=== PATIENT | female | born 1955 | race Native Hawaiian/Other Pacific Islander ===

== ENCOUNTER 2017-02-08 11:50 | Inpatient (IN) | payer OTHER ==
[2017-02-08 11:57] VITALS: BMI 31.1
--- NOTE | 2017-02-08 12:30 | ED PDOC ---
HPI: General Adult Time Seen by Provider: 02/08/17 12:10 Chief Complaint (Nursing): Shortness Of Breath Chief Complaint (Provider): short of breath History Per: Patient History/Exam Limitations: no limitations Additional Complaint(s): 61yo female with chest pain, shortness of breath, fever. Chest pain is right sided, pleuritic, intermittent, associated with difficulty breathing at rests. Also reports dyspnea on exertion. Admits to an intermittent fever 101*F. Also complaining of chills, no cough, leg swelling. Patient recently traveled from [facility] on 01/28/17 Past Medical History Reviewed: Historical Data, Nursing Documentation, Vital Signs Vital Signs: Last Vital Signs Temp 99 F 02/09/17 00:57 Pulse 94 H 02/09/17 00:57 Resp 19 02/09/17 00:57 BP 139/79 02/09/17 00:57 Pulse Ox 96 02/09/17 00:57 - Medical History PMH: HTN - Surgical History Surgical History: No Surg Hx - Family History Family History: States: Unknown Family Hx - Social History Drugs: Denies - Home Medications Home Medications: Ambulatory Orders Medication Instructions Recorded Glimepiride [amaRYL] 2 mg PO DAILY 02/08/17 Levothyroxine [Synthroid] 37.5 mcg PO DAILY 02/08/17 Losartan/Hctz (Zilos H) 1 tab PO DAILY 02/08/17 amLODIPine [Norvasc] 10 mg PO DAILY 02/08/17 - Allergies Allergies/Adverse Reactions: Allergies Allergy/AdvReac Type Severity Reaction Status Date / Time No Known Allergies Allergy Verified 02/08/17 12:15 Review of Systems ROS Statement: Except As Marked, All Systems Reviewed And Found Negative Constitutional: Positive for: Fever, Chills Cardiovascular: Positive for: Chest Pain Respiratory: Positive for: Shortness of Breath. Negative for: Cough Physical Exam - Reviewed Nursing Documentation Reviewed: Yes Vital Signs Reviewed: Yes - Physical Exam Appears: Positive for: Well, Non-toxic Head Exam: Positive for: ATRAUMATIC, NORMAL INSPECTION, NORMOCEPHALIC Skin: Positive for: Warm, Dry Eye Exam: Positive for: EOMI, PERRL Cardiovascular/Chest: Positive for: Tachycardia. Negative for: Irregularly Irregular Respiratory: Positive for: Respiratory Distress (mild), Other (mild tachypnea). Negative for: Rales, Rhonchi Gastrointestinal/Abdominal: Positive for: Soft. Negative for: Tenderness Extremity: Positive for: Normal ROM - Laboratory Results Result Diagrams: 02/08/17 12:30 02/08/17 12:30 - ECG ECG: Positive for: Interpreted By Me, Viewed By Me ECG Rhythm: Positive for: Normal QRS, Sinus Tachycardia. Negative for: ST/T Changes Rate: 105 O2 Sat by Pulse Oximetry: 100 (RA) Pulse Ox Interpretation: Normal - Radiology X-Ray: Interpreted by Me, Viewed By Me X-Ray Interpretation: Infiltrates (right upper lobe) Medical Decision Making Medical Decision Makin impression chest pain, dyspea, fever differential includes pneumonia, pulmonary embolism, rule out sepsis. less likely pericarditis, myocarditis. Plan: CTA Chest VBG Labs Zithromax IV Fluids Rocephin Blood culture reassess 1608 Impression Pneumonia, CAP. Differential now includes rule out TB. Discussed with Dr. Barrera hospitalist to admit with isolation precautions. Secondary Dx hyperglycemia. 1608 CTA Chest Impression Limited pulmonary angiogram due to poor opacification of the pulmonary arteries. No evidence of acute central pulmonary embolus. There is a elliptical shaped on area of what probably represents loculated pleural fluid in the right medical lung base. In addition, there is a area of altelectasis and/or consolidation in the right posterior upper lung zone/right lung apex with an elliptical shaped area of low attenuation on medially within this area of consolidation that could represent loculated fluid however the possibility of a nectoric mass not excluded. Disposition - Clinical Impression Clinical Impression: Pneumonia, Hyperglycemia - Patient ED Disposition Is Patient to be Admitted: Yes Discussed With DrAutumn: Burton Barrera Doctor Will See Patient In The: ED Counseled Patient/Family Regarding: Studies Performed, Diagnosis - Disposition Disposition Time: 16:00 Condition: FAIR - Pt Status Changed To: Hospital Disposition Of: Inpatient - Admit Certification Admit to Inpatient:: After my assessment, the patient will require hospitalization for at least two midnights. This is because of the severity of symptoms shown, intensity of services needed, and/or the medical risk in this patient being treated as an outpatient. - POA Present On Arrival: Poor Glycemic Control Additional Comments - Additional Comments Additional Comments: Scribe Attestation: Documented by Raza Givens acting as a scribe for Cesar Paige MD. Provider Scribe Attestation: All medical record entries made by the Scribe were at my direction and personally dictated by me. I have reviewed the chart and agree that the record accurately reflects my personal performance of the history, physical exam, medical decision making, and the department course for this patient. I have also personally directed, reviewed, and agree with the discharge instructions and disposition.
[2017-02-08 12:53] LABS: BASO # 0.1 K/uL (0.0-0.2); BASO % 0.5 % (0.0-2.0); EOS # 0.7 K/uL (0.0-0.7); EOS % 3.4 % (0.0-4.0); HEMATOCRIT 29.7 % (34.0-47.0); LYMPH # 1.6 K/uL (1.0-4.3); LYMPH % 7.8 % (20.0-40.0); MEAN CELL VOLUME 74.1 fl (81.0-99.0); MEAN CORPUSCULAR HEMOGLOBIN 23.3 pg (27.0-31.0); MEAN CORPUSCULAR HGB CONC 31.4 g/dL (33.0-37.0); MEAN PLATELET VOLUME 8.4 fl (7.2-11.7); MONO # 1.6 K/uL (0.0-0.8); MONO % 7.8 % (0.0-10.0); NEUT # 16.1 K/uL (1.8-7.0); NEUT % 80.5 % (50.0-75.0); PLATELET COUNT 359 K/uL (130-400); RED CELL DISTRIBUTION WIDTH 16.2 % (11.5-14.5)
[2017-02-08 12:55] LABS: VENOUS BLOOD GAS BASE EXCESS -3.1 mmol/L (0.0-2.0); VENOUS BLOOD GAS PCO2 35 mmHg (40-60); VENOUS BLOOD PH 7.39 (7.32-7.43)
[2017-02-08] MEDS ORDERED: Sodium Chloride 0.9% 1,000 ML IV STA (12:55)
[2017-02-08 12:57] LABS: BILIRUBIN,TOTAL 0.5 mg/dl (0.2-1.3); CALCIUM 9.1 mg/dL (8.4-10.2); POTASSIUM 5.1 MMOL/L (3.6-5.0); TOTAL PROTEIN 7.1 G/DL (6.3-8.2)
[2017-02-08 13:01] LABS: PARTIAL THROMBOPLASTIN TIME 29.1 SECONDS (23.3-32.5)
--- NOTE | 2017-02-08 13:19 | RAD ---
HISTORY: chest pain COMPARISON: No prior TECHNIQUE: Chest PA and lateral FINDINGS: LUNGS: Vague translucent opacity seen in the right upper lobe which appears to be of well-demarcated along its inferior border apparently by the fissure. Findings could represent atelectasis and or infiltrate. Mild left basilar linear/curvilinear atelectasis and or scarring. Suspect minor right basilar atelectasis PLEURA: No significant pleural effusion identified. No pneumothorax apparent. CARDIOVASCULAR: Normal. OSSEOUS STRUCTURES: No significant abnormalities. VISUALIZED UPPER ABDOMEN: Normal. OTHER FINDINGS: None. IMPRESSION: Vague translucent opacity seen in the right upper lobe which appears to be of well-demarcated along its inferior border apparently by the fissure. Findings could represent atelectasis and or infiltrate. Mild left basilar linear/curvilinear atelectasis and or scarring. Suspect minor right basilar atelectasis
[2017-02-08] MEDS ORDERED: cefTRIAXone (Rocephin) 1 gm Inj ONE (13:57)
[2017-02-08 13:58] LABS: EOSINOPHIL 3 % (0-7); NEUTROPHIL 84 % (42-75); TOTAL CELLS COUNTED 100
[2017-02-08 14:00] LABS: PLATELET CLUMPS PRESENT
[2017-02-08] MEDS ORDERED: Sodium Chloride 0.9% 50 ML IV ONE (14:08)
[2017-02-08] MEDS ORDERED: Iodixanol 320 MG/ML 100 ML BOTTLE IV ONE (14:08)
--- NOTE | 2017-02-08 15:44 | CT ---
PROCEDURE: CTA chest dated 02/08/2017 HISTORY: chest pain COMPARISON: None available. TECHNIQUE: Helical/transaxial computed tomography images were obtained of the chest in the pulmonary arterial phase of enhancement. Coronal and sagittal reformatted images were created and reviewed. Intravenous contrast dose: Approximately 83 cc Visipaque 320 contrast material. Radiation dose: Total exam DLP = mGy-cm. This CT exam was performed using one or more of the following dose reduction techniques: Automated exposure control, adjustment of the mA and/or kV according to patient size, and/or use of iterative reconstruction technique. FINDINGS: Findings: PULMONARY ARTERIES: Note that evaluation of the pulmonary arteries is somewhat limited due to suboptimal opacification. The visualized pulmonary trunk, right and left main, lobar and segmental branches of the pulmonary arteries are well opacified with no obvious central filling defects. Pulmonary trunk measures approximately 2.56 cm. AORTA: Ascending thoracic aorta measures approximately 3.0 cm and descending thoracic aorta measures approximately 2.4 cm. LUNGS: There is opacification in the right upper lung field that appears to represent a elliptical shaped area of subsegmental/submental atelectasis however an approximately 2.95 ap x 2.2 t x 3.0 cc cm more discrete somewhat elliptical shaped area of low attenuation within the medial aspect of this suspected atelectasis could represent loculated fluid. Possibility of a necrotic mass cannot be excluded. In addition, there is what appears represent a loculated pleural effusion in the posteromedial aspect right lung base at as well. Findings could represent sequela of old infection . . Mild left lingular atelectasis/scarring. Minimal atelectasis/scarring right middle lobe region. PLEURAL SPACES: As above. No pneuomothorax. HEART: Heart size within range of normal. Mild LVH. No significant pericardial effusion LYMPH NODES: Small 14 mm right hilar lymph node. BONES, CHEST WALL: Mild multilevel degenerative spondylosis of the thoracic spine. Of. There is a chronic appearing anterior wedge deformity of the T12 and to a lesser degree T11 and less so T10 segments. OTHER FINDINGS: Unremarkable. IMPRESSION: Limited pulmonary angiogram due to poor opacification of the pulmonary arteries. No evidence of acute central pulmonary embolus. There is a elliptical shaped on area of what probably represents loculated pleural fluid in the right medial lung base. In addition, there is a area of atelectasis and/or consolidation in the right posterior upper lung zone/right lung apex with an elliptical shaped area of low attenuation on medially within this area of consolidation that could represent loculated fluid however the possibility of a necrotic mass not excluded.
[2017-02-08] MEDS ORDERED: Sodium Chloride 3% for Inhalation 4 ML VIAL.NEB IH PRN (15:59)
[2017-02-08] MEDS ORDERED: Insulin Regular 100 units/ml IV STA (16:10)
--- NOTE | 2017-02-08 18:56 | CP.PCM.HP ---
History of Present Illness - History of Present Illness History of Present Illness: 61 yo female with history of HTN and DM recently arrived from [place] 10 days ago brought in because of SOB, right sided pleuritic chest pain and fever since 5 days ago. Present on Admission - Present on Admission Any Indicators Present on Admission: No History of DVT/PE: No History of Uncontrolled Diabetes: No Urinary Catheter: No Decubitus Ulcer Present: No Review of Systems - Review of Systems All systems: reviewed and no additional remarkable complaints except (aside from those mentioned above, 12 point system review were negative by me) Past Patient History - Past Medical History & Family History Past Medical History?: Yes - Past Social History Smoking Status: Never Smoked Chewing Tobacco Use: No Cigar Use: No Alcohol: None Drugs: Denies - CARDIAC Hx Cardiac Disorders: Yes Hx Hypertension: Yes - PULMONARY Hx Respiratory Disorders: No - NEUROLOGICAL Hx Neurological Disorder: No - HEENT Hx HEENT Problems: No - RENAL Hx Chronic Kidney Disease: No - ENDOCRINE/METABOLIC Hx Endocrine Disorders: Yes Hx Diabetes Mellitus Type 2: Yes - HEMATOLOGICAL/ONCOLOGICAL Hx Blood Disorders: No - INTEGUMENTARY Hx Dermatological Problems: No - MUSCULOSKELETAL/RHEUMATOLOGICAL Hx Musculoskeletal Disorders: No Hx Falls: No - GASTROINTESTINAL Hx Gastrointestinal Disorders: No - GENITOURINARY/GYNECOLOGICAL Hx Genitourinary Disorders: No - PSYCHIATRIC Hx Psychophysiologic Disorder: No Hx Substance Use: No - SURGICAL HISTORY Hx Surgeries: Yes Hx Section: Yes (1) - ANESTHESIA Hx Anesthesia: Yes Hx Anesthesia Reactions: No Meds Allergies/Adverse Reactions: Allergies Allergy/AdvReac Type Severity Reaction Status Date / Time No Known Allergies Allergy Verified 02/08/17 12:15 Physical Exam - Constitutional Appears: No Acute Distress - Head Exam Head Exam: ATRAUMATIC - Eye Exam Eye Exam: absent: Scleral icterus - ENT Exam ENT Exam: Mucous Membranes Moist - Neck Exam Neck exam: Negative for: Meningismus - Respiratory Exam Respiratory Exam: Decreased Breath Sounds. absent: Respiratory Distress - Cardiovascular Exam Cardiovascular Exam: Tachycardia, +S1, +S2 - GI/Abdominal Exam GI & Abdominal Exam: Soft. absent: Tenderness - Rectal Exam Rectal Exam: Deferred - Extremities Exam Extremities exam: Negative for: pedal edema - Neurological Exam Neurological exam: Alert, Oriented x3 - Psychiatric Exam Psychiatric exam: Normal Affect - Skin Skin Exam: Dry, Intact Results - Vital Signs Recent Vital Signs: Last Vital Signs Temp 98.5 F 02/08/17 18:00 Pulse 101 H 02/08/17 18:00 Resp 20 02/08/17 18:33 BP 151/77 H 02/08/17 18:00 Pulse Ox 99 02/08/17 18:33 - Labs Result Diagrams: 02/10/17 06:15 02/11/17 06:05 Assessment & Plan (1) Sepsis Status: Acute Comment: admit to med/surg. sepsis secondary to pneumonia (2) Pneumonia Status: Acute Comment: rul and rml pneumonia r/o PTB. PPD. sputum for AFB. Qunatiferon TB. continue isolation. started on Rocephin and Zithromax (3) HTN (hypertension) Status: Chronic Comment: BP controlled. on anti-hypertensive in [place] probably Amlodipine and Losartan (4) DM2 (diabetes mellitus, type 2) Status: Chronic Comment: BS uncontrolled. accuchek ACHS with low Lispro coverage. diabetic diet. HgA1C, BMP in am (5) DVT prophylaxis Status: Acute Comment: Lovenox 40mg SC daily
[2017-02-08] MEDS ORDERED: Tuberculin 5 Units/0.1 ml Inj ID ONE (20:00)
[2017-02-08] MEDS: Insulin Lispro (humaLOG) 100 Units/ml Inj SC SCH (21:34)
[2017-02-09] MEDS: Enoxaparin 40 mg Syringe SC SCH (08:24)
[2017-02-09] MEDS: Insulin Lispro (humaLOG) 100 Units/ml Inj SC SCH ×4 (08:24→21:41)
[2017-02-09] MEDS: Levothyroxine 75 MCG TAB PO SCH (08:25)
[2017-02-09] MEDS ORDERED: GlipiZIDE 5 mg SR Tab PO SCH (08:30)
--- NOTE | 2017-02-09 09:30 | CARD ---
APPROVED REPORT EKG Measurement Heart [id number] <Conclusion> Normal sinus rhythm Cannot rule out Anterior infarct, age undetermined-not diagnostic Abnormal ECG
--- NOTE | 2017-02-09 10:58 | CARD ---
APPROVED REPORT EKG Measurement Heart [id number] <Conclusion> Sinus tachycardia Cannot rule out Anterior infarct, age undetermined-not diagnostic Abnormal ECG
[2017-02-09 11:02] LABS: BASO % 0.3 % (0.0-2.0); EOS # 0.6 K/uL (0.0-0.7); EOS % 3.7 % (0.0-4.0); HEMATOCRIT 29.5 % (34.0-47.0); LYMPH # 1.2 K/uL (1.0-4.3); LYMPH % 7.7 % (20.0-40.0); MEAN CELL VOLUME 73.9 fl (81.0-99.0); MEAN CORPUSCULAR HEMOGLOBIN 23.1 pg (27.0-31.0); MEAN CORPUSCULAR HGB CONC 31.2 g/dL (33.0-37.0); MEAN PLATELET VOLUME 8.1 fl (7.2-11.7); MONO # 1.2 K/uL (0.0-0.8); MONO % 7.7 % (0.0-10.0); NEUT # 12.6 K/uL (1.8-7.0); NEUT % 80.6 % (50.0-75.0); RED CELL DISTRIBUTION WIDTH 15.9 % (11.5-14.5); WHITE BLOOD COUNT 15.6 K/uL (4.8-10.8)
--- NOTE | 2017-02-09 11:02 | CP.PCM.PN ---
Subjective - Date & Time of Evaluation Date of Evaluation: 02/09/17 Time of Evaluation: 11:00 - Subjective Subjective: Patient seen and evaluated bedside. Feeling a little better. Still feeling SOB at rest and with ambulation. Right chest pain a little improved but still present especially with deep breaths.No cough or sputum production Hemodynamically stable, afebrile Accucheks uncontrolled BP 149/79 HR 80 RR 20 WBC 15 K Hgb 9.2 Cr 1.3 Objective - Vital Signs/Intake and Output Vital Signs (last 24 hours): Temp Pulse Resp BP Pulse Ox 98.2 F 80 20 149/79 96 02/09/17 08:18 02/09/17 08:18 02/09/17 08:18 02/09/17 08:18 02/09/17 08:18 - Medications Medications: Current Medications Acetaminophen (Tylenol 325mg Tab) 650 mg PO Q4 PRN PRN Reason: Pain, moderate (4-7) Last Admin: 02/08/17 20:09 Dose: 650 mg Amlodipine Besylate (Norvasc) 5 mg PO DAILY [facility] Last Admin: 02/09/17 08:25 Dose: 5 mg Enoxaparin Sodium (Lovenox) 40 mg SC DAILY [facility] PRN Reason: Protocol Last Admin: 02/09/17 08:24 Dose: 40 mg Glipizide (Glucotrol Xl) 5 mg PO BRK [facility] Last Admin: 02/09/17 09:19 Dose: 5 mg Ceftriaxone Sodium 1 gm/ (Sodium Chloride) 100 mls @ 100 mls/hr IVPB DAILY [facility] Azithromycin 500 mg/ Sodium (Chloride) 250 mls @ 250 mls/hr IVPB DAILY [facility] Sodium Chloride (Sodium Chloride 0.9%) 1,000 mls @ 100 mls/hr IV .Q10H [facility] Stop: 02/10/17 10:55 Insulin Human Lispro (Humalog) 0 units SC ACHS [facility] PRN Reason: Protocol Last Admin: 02/09/17 08:24 Dose: 5 units Levothyroxine Sodium (Synthroid) 37.5 mcg PO DAILY [facility] Last Admin: 02/09/17 08:25 Dose: 37.5 mcg - Labs Labs: PT 10.5 SECONDS (9.6-11.2) 02/08/17 12:30 INR 1.01 (0.92-1.08) 02/08/17 12:30 APTT 29.1 SECONDS (23.3-32.5) 02/08/17 12:30 - Constitutional Appears: Well, Non-toxic, No Acute Distress - Head Exam Head Exam: ATRAUMATIC, NORMAL INSPECTION, NORMOCEPHALIC - Eye Exam Eye Exam: EOMI, Normal appearance, PERRL Pupil Exam: NORMAL ACCOMODATION - ENT Exam ENT Exam: Mucous Membranes Moist, Normal Exam - Neck Exam Neck Exam: Full ROM, Normal Inspection - Respiratory Exam Respiratory Exam: Clear to Ausculation Bilateral, NORMAL BREATHING PATTERN. absent: Rhonchi, Wheezes, Respiratory Distress - Cardiovascular Exam Cardiovascular Exam: REGULAR RHYTHM, RRR, +S1, +S2. absent: JVD - GI/Abdominal Exam GI & Abdominal Exam: Soft, Normal Bowel Sounds. absent: Distended, Tenderness, Rebound - Rectal Exam Rectal Exam: Deferred - Extremities Exam Extremities Exam: Full ROM, Normal Capillary Refill, Normal Inspection. absent : Calf Tenderness, Pedal Edema - Back Exam Back Exam: NORMAL INSPECTION - Neurological Exam Neurological Exam: Alert, Awake, CN II-XII Intact, Oriented x3 - Psychiatric Exam Psychiatric exam: Normal Affect, Normal Mood - Skin Skin Exam: Dry, Normal Color, Warm Assessment and Plan - Assessment and Plan (Free Text) Assessment: 61 yo female with PMH hypothyroidism, DM type II, HTN , anemia of chronic disease presented with 3 day history of right sided chest pain,intermittent, pleuritic in nature, worse with deep[ breathing , shortness of breath, fever. Patient denies any cough, sputum production, weight loss, night sweats.She recently traveled from [facility] to 01/28 .Patient reported fever at home 101.5 F. Patient was found to have loculated pleural fluid in the right medial lung base and there is a area of atelectasis and/or consolidation in the right posterior upper lung zone/right lung apex with an elliptical shaped area of low attenuation on medially within this area of consolidation that could represent loculated fluid however the possibility of a necrotic mass not excluded. Patient found to be tachycardic with WBC 20 K 1.Sepsis improving Most likely secondary to Pneumonia Responded to IVF Started Rocephin and Zithromax for Pneumonia Follow up blood Cx 2. Pneumonia with loculated pleural effusion and suspected RUL nectrotic mass Placed on respiratory isolation to rule out TB Pulmonary and ID consulted Placed PPD to right forearm. Will reda in 48 and 72 hours Follow up quantiferon Respiratory therapist for sputum induction for AFB collection Continue Rocephin and Zithromax O2 via [place] Follow up blood cx 3. Acute kidney injury Most likely prerenal Continue IVF 4. Anemia Patient has history of chronic anemia with baseline Hgb 10.5 Send anemia work up 5. Uncontrolled DM accu 360 Check Hgb A1c Start Glipizide 10 mg PO daily, diabetic diet Accuchecks with insulin coverage Family will bring all her home meds 6. Hypothyroidism Check TSH On Synthroid 7. Hypertension labile On Norvasc 5 mg QD 8.Hyperkalemia resolved with IVF 9.DVT prophylaxis on Lovenox
[2017-02-09] MEDS: Sodium Chloride 0.9% 1,000 ML IV SCH ×2 (11:11→21:41)
[2017-02-09 11:12] LABS: BILIRUBIN,TOTAL 0.3 mg/dl (0.2-1.3); CALCIUM 9.1 mg/dL (8.4-10.2); POTASSIUM 4.7 MMOL/L (3.6-5.0); TOTAL PROTEIN 6.7 G/DL (6.3-8.2)
[2017-02-09] MEDS ORDERED: GlipiZIDE 5 mg SR Tab PO STA (11:26)
[2017-02-09 12:36] LABS: IRON 19 ug/dL (37-170)
[2017-02-09 13:02] LABS: THYROID STIMULATING HORMONE 2.93 mIU/ML (0.46-4.68)
[2017-02-09] MEDS: Azithromycin 500 MG in Sodium Chloride 0.9% 250 ML IVPB SCH (13:39)
--- NOTE | 2017-02-09 19:09 | CP.PCM.PN ---
Subjective - Date & Time of Evaluation Date of Evaluation: 02/09/17 Time of Evaluation: 19:08 - Subjective Subjective: ID NOTE AT PRESENT CHART REVIEWED AGREE C ANTIBIOTIC RX AWAIT AFB SMEARS AND CULTURES ALONG C QUANTIFERON GOLD Objective - Vital Signs/Intake and Output Vital Signs (last 24 hours): Temp Pulse Resp BP Pulse Ox 98.7 F 107 H 18 153/77 H 95 02/09/17 17:03 02/09/17 17:03 02/09/17 17:03 02/09/17 17:03 02/09/17 17:03 - Medications Medications: Current Medications Acetaminophen (Tylenol 325mg Tab) 650 mg PO Q4 PRN PRN Reason: Pain, moderate (4-7) Last Admin: 02/09/17 15:30 Dose: 650 mg Amlodipine Besylate (Norvasc) 5 mg PO DAILY [facility] Last Admin: 02/09/17 08:25 Dose: 5 mg Enoxaparin Sodium (Lovenox) 40 mg SC DAILY [facility] PRN Reason: Protocol Last Admin: 02/09/17 08:24 Dose: 40 mg Glipizide (Glucotrol Xl) 10 mg PO BRK [facility] Ceftriaxone Sodium 1 gm/ (Sodium Chloride) 100 mls @ 100 mls/hr IVPB DAILY [facility] Last Admin: 02/09/17 13:39 Dose: 100 mls/hr Azithromycin 500 mg/ Sodium (Chloride) 250 mls @ 250 mls/hr IVPB DAILY [facility] Last Admin: 02/09/17 13:39 Dose: 250 mls/hr Sodium Chloride (Sodium Chloride 0.9%) 1,000 mls @ 100 mls/hr IV .Q10H [facility] Stop: 02/10/17 10:55 Last Admin: 02/09/17 11:11 Dose: 100 mls/hr Insulin Human Lispro (Humalog) 0 units SC ACHS [facility] PRN Reason: Protocol Last Admin: 02/09/17 16:39 Dose: 4 units Levothyroxine Sodium (Synthroid) 37.5 mcg PO DAILY [facility] Last Admin: 02/09/17 08:25 Dose: 37.5 mcg - Labs Labs: 02/09/17 10:35 02/09/17 10:35 PT 10.5 SECONDS (9.6-11.2) 02/08/17 12:30 INR 1.01 (0.92-1.08) 02/08/17 12:30 APTT 29.1 SECONDS (23.3-32.5) 02/08/17 12:30
--- NOTE | 2017-02-09 21:31 | CP.PCM.CON ---
History of Present Illness - History of Present Illness History of Present Illness: Patient seen, chart reviewed; full consult to follow. Cont present treatment for now. Past Patient History - Past Medical History & Family History Past Medical History?: Yes - Past Social History Drugs: Denies - CARDIAC Hx Hypertension: Yes - PULMONARY Hx Respiratory Disorders: No - NEUROLOGICAL Hx Neurological Disorder: No - HEENT Hx HEENT Problems: No - RENAL Hx Chronic Kidney Disease: No - ENDOCRINE/METABOLIC Hx Endocrine Disorders: Yes Hx Diabetes Mellitus Type 2: Yes - HEMATOLOGICAL/ONCOLOGICAL Hx Blood Disorders: No - INTEGUMENTARY Hx Dermatological Problems: No - MUSCULOSKELETAL/RHEUMATOLOGICAL Hx Musculoskeletal Disorders: No Hx Falls: No - GASTROINTESTINAL Hx Gastrointestinal Disorders: No - GENITOURINARY/GYNECOLOGICAL Hx Genitourinary Disorders: No - PSYCHIATRIC Hx Psychophysiologic Disorder: No Hx Substance Use: No - SURGICAL HISTORY Hx Surgeries: Yes Hx Section: Yes (1) - ANESTHESIA Hx Anesthesia: Yes Hx Anesthesia Reactions: No Meds Allergies/Adverse Reactions: Allergies Allergy/AdvReac Type Severity Reaction Status Date / Time No Known Allergies Allergy Verified 02/08/17 12:15 - Medications Medications: Current Medications Acetaminophen (Tylenol 325mg Tab) 650 mg PO Q4 PRN PRN Reason: Pain, moderate (4-7) Last Admin: 02/09/17 15:30 Dose: 650 mg Amlodipine Besylate (Norvasc) 5 mg PO DAILY [facility] Last Admin: 02/09/17 08:25 Dose: 5 mg Enoxaparin Sodium (Lovenox) 40 mg SC DAILY [facility] PRN Reason: Protocol Last Admin: 02/09/17 08:24 Dose: 40 mg Glipizide (Glucotrol Xl) 10 mg PO BRK [facility] Ceftriaxone Sodium 1 gm/ (Sodium Chloride) 100 mls @ 100 mls/hr IVPB DAILY [facility] Last Admin: 02/09/17 13:39 Dose: 100 mls/hr Azithromycin 500 mg/ Sodium (Chloride) 250 mls @ 250 mls/hr IVPB DAILY [facility] Last Admin: 02/09/17 13:39 Dose: 250 mls/hr Sodium Chloride (Sodium Chloride 0.9%) 1,000 mls @ 100 mls/hr IV .Q10H [facility] Stop: 02/10/17 10:55 Last Admin: 02/09/17 11:11 Dose: 100 mls/hr Insulin Human Lispro (Humalog) 0 units SC ACHS [facility] PRN Reason: Protocol Last Admin: 02/09/17 16:39 Dose: 4 units Levothyroxine Sodium (Synthroid) 37.5 mcg PO DAILY [facility] Last Admin: 02/09/17 08:25 Dose: 37.5 mcg Results - Vital Signs Recent Vital Signs: Last Vital Signs Temp 98.7 F 02/09/17 17:03 Pulse 107 H 02/09/17 17:03 Resp 18 02/09/17 17:03 BP 153/77 H 02/09/17 17:03 Pulse Ox 95 02/09/17 17:03 - Labs Result Diagrams: 02/09/17 10:35 02/09/17 10:35 Labs: Laboratory Results - last 24 hr 02/08/17 02/09/17 02/09/17 21:28 05:52 10:35 WBC 15.6 H RBC 3.99 Hgb 9.2 L Hct 29.5 L MCV 73.9 L MCH 23.1 L MCHC 31.2 L RDW 15.9 H Plt Count 359 MPV 8.1 Neut % (Auto) 80.6 H Lymph % (Auto) 7.7 L [place] % (Auto) 7.7 Eos % (Auto) 3.7 Baso % (Auto) 0.3 Neut # 12.6 H Lymph # 1.2 [place] # 1.2 H Eos # 0.6 Baso # 0.0 Retic Count Sodium Potassium Chloride Carbon Dioxide Anion Gap BUN Creatinine Est GFR ( Amer) Est GFR (Non-Af Amer) POC Glucose (mg/dL) 381 H 364 H Random Glucose Calcium Iron TIBC % Saturation Ferritin Total Bilirubin AST ALT Alkaline Phosphatase Total Protein Albumin Globulin Albumin/Globulin Ratio Vitamin B12 TSH 3rd Generation 02/09/17 02/09/17 02/09/17 10:35 11:00 11:00 WBC RBC Hgb Hct MCV MCH MCHC RDW Plt Count MPV Neut % (Auto) Lymph % (Auto) [place] % (Auto) Eos % (Auto) Baso % (Auto) Neut # Lymph # [place] # Eos # Baso # Retic Count 1.3 Sodium 138 Potassium 4.7 Chloride 103 Carbon Dioxide 23 Anion Gap 17 BUN 17 Creatinine 1.3 H Est GFR ( Amer) 51 Est GFR (Non-Af Amer) 42 POC Glucose (mg/dL) Random Glucose 389 H Calcium 9.1 Iron TIBC % Saturation Ferritin 141.0 Total Bilirubin 0.3 AST 16 ALT 41 Alkaline Phosphatase 123 Total Protein 6.7 Albumin 3.4 L Globulin 3.4 Albumin/Globulin Ratio 1.0 Vitamin B12 > 1000 H TSH 3rd Generation 2.93 02/09/17 02/09/17 02/09/17 11:06 12:00 15:49 WBC RBC Hgb Hct MCV MCH MCHC RDW Plt Count MPV Neut % (Auto) Lymph % (Auto) [place] % (Auto) Eos % (Auto) Baso % (Auto) Neut # Lymph # [place] # Eos # Baso # Retic Count Sodium Potassium Chloride Carbon Dioxide Anion Gap BUN Creatinine Est GFR ( Amer) Est GFR (Non-Af Amer) POC Glucose (mg/dL) 360 H 345 H Random Glucose Calcium Iron 19 L TIBC 240 L % Saturation 8 L Ferritin Total Bilirubin AST ALT Alkaline Phosphatase Total Protein Albumin Globulin Albumin/Globulin Ratio Vitamin B12 TSH 3rd Generation
[2017-02-09 21:50] LABS: FOLATE > 20.0 ng/mL
[2017-02-10] MEDS: Sodium Chloride 0.9% 1,000 ML IV SCH ×2 (02:12→09:00)
[2017-02-10 07:00] LABS: MEAN CELL VOLUME 74.3 fl (81.0-99.0); MEAN CORPUSCULAR HEMOGLOBIN 22.5 pg (27.0-31.0); MEAN CORPUSCULAR HGB CONC 30.3 g/dL (33.0-37.0); RED CELL DISTRIBUTION WIDTH 15.9 % (11.5-14.5); WHITE BLOOD COUNT 17.1 K/uL (4.8-10.8)
[2017-02-10 07:01] LABS: CALCIUM 9.4 mg/dL (8.4-10.2); POTASSIUM 4.5 MMOL/L (3.6-5.0)
[2017-02-10] MEDS: Insulin Lispro (humaLOG) 100 Units/ml Inj SC SCH ×4 (08:45→22:02)
[2017-02-10] MEDS: Enoxaparin 40 mg Syringe SC SCH (08:47)
[2017-02-10] MEDS: Levothyroxine 75 MCG TAB PO SCH (08:48)
[2017-02-10] MEDS: GlipiZIDE 10 mg SR Tab PO SCH (08:48)
[2017-02-10] MEDS: Azithromycin 500 MG in Sodium Chloride 0.9% 250 ML IVPB SCH (08:50)
--- NOTE | 2017-02-10 11:01 | CP.PCM.PN ---
Subjective - Date & Time of Evaluation Date of Evaluation: 02/10/17 Time of Evaluation: 11:00 - Subjective Subjective: Patient seen and examined bedside. Feeling better. Still with some dyspnea with ambulation overnight , some chills and right sided chest pain with deep breathing Tmax 100.5 last 24 hours BP elevated 177/96 HR 96 WBC 17 K Hgb 9.4 Objective - Vital Signs/Intake and Output Vital Signs (last 24 hours): Temp Pulse Resp BP Pulse Ox 98.4 F 96 H 18 177/96 H 98 02/10/17 07:41 02/10/17 08:47 02/10/17 07:41 02/10/17 08:47 02/10/17 07:41 - Medications Medications: Current Medications Acetaminophen (Tylenol 325mg Tab) 650 mg PO Q4 PRN PRN Reason: Pain, moderate (4-7) Last Admin: 02/09/17 23:11 Dose: 650 mg Amlodipine Besylate (Norvasc) 5 mg PO DAILY [facility] Last Admin: 02/10/17 08:47 Dose: 5 mg Enoxaparin Sodium (Lovenox) 40 mg SC DAILY [facility] PRN Reason: Protocol Last Admin: 02/10/17 08:47 Dose: 40 mg Ferrous Sulfate (Feosol) 325 mg PO BID [facility] Glipizide (Glucotrol Xl) 10 mg PO BRK [facility] Last Admin: 02/10/17 08:48 Dose: 10 mg Ceftriaxone Sodium 1 gm/ (Sodium Chloride) 100 mls @ 100 mls/hr IVPB DAILY [facility] Last Admin: 02/10/17 08:51 Dose: 100 mls/hr Azithromycin 500 mg/ Sodium (Chloride) 250 mls @ 250 mls/hr IVPB DAILY [facility] Last Admin: 02/10/17 08:50 Dose: 250 mls/hr Sodium Chloride (Sodium Chloride 0.9%) 1,000 mls @ 100 mls/hr IV .Q10H [facility] Stop: 02/10/17 10:55 Last Admin: 02/10/17 09:00 Dose: Not Given Iron Sucrose 100 mg/ Sodium (Chloride) 105 mls @ 105 mls/hr IVPB DAILY [facility] Insulin Human Lispro (Humalog) 0 units SC ACHS [facility] PRN Reason: Protocol Last Admin: 02/10/17 08:45 Dose: 1 units Levothyroxine Sodium (Synthroid) 37.5 mcg PO DAILY@0630 [facility] Metoprolol Succinate (Toprol Xl) 25 mg PO DAILY [facility] - Labs Labs: 02/10/17 06:15 02/10/17 06:15 PT 10.5 SECONDS (9.6-11.2) 02/08/17 12:30 INR 1.01 (0.92-1.08) 02/08/17 12:30 APTT 29.1 SECONDS (23.3-32.5) 02/08/17 12:30 - Constitutional Appears: Non-toxic, No Acute Distress - Head Exam Head Exam: ATRAUMATIC, NORMAL INSPECTION, NORMOCEPHALIC - Eye Exam Eye Exam: EOMI, Normal appearance, PERRL Pupil Exam: NORMAL ACCOMODATION - ENT Exam ENT Exam: Mucous Membranes Moist, Normal Exam - Neck Exam Neck Exam: Full ROM, Normal Inspection - Respiratory Exam Respiratory Exam: Decreased Breath Sounds (right lower base), Clear to Ausculation Bilateral, Rales, NORMAL BREATHING PATTERN. absent: Rhonchi, Wheezes - Cardiovascular Exam Cardiovascular Exam: REGULAR RHYTHM, RRR, +S1, +S2. absent: JVD - GI/Abdominal Exam GI & Abdominal Exam: Soft, Normal Bowel Sounds. absent: Distended, Guarding, Tenderness, Rebound - Rectal Exam Rectal Exam: Deferred - Extremities Exam Extremities Exam: Full ROM, Normal Capillary Refill, Normal Inspection. absent : Calf Tenderness, Pedal Edema - Back Exam Back Exam: NORMAL INSPECTION - Neurological Exam Neurological Exam: Alert, Awake, CN II-XII Intact, Oriented x3 - Psychiatric Exam Psychiatric exam: Normal Affect, Normal Mood - Skin Skin Exam: Dry, Intact, Normal Color, Warm Assessment and Plan - Assessment and Plan (Free Text) Assessment: 61 yo female with PMH hypothyroidism, DM type II, HTN , anemia of chronic disease presented with 3 day history of right sided chest pain,intermittent, pleuritic in nature, worse with deep breathing , shortness of breath, fever. Patient denies any cough, sputum production, weight loss, night sweats.She recently traveled from [facility] to 01/28 .Patient reported fever at home 101.5 F. Patient was found to have loculated pleural fluid in the right medial lung base and there is a area of atelectasis and/or consolidation in the right posterior upper lung zone/right lung apex with an elliptical shaped area of low attenuation on medially within this area of consolidation that could represent loculated fluid however the possibility of a necrotic mass not excluded. Patient found to be tachycardic with WBC 20 K and was admitted for sepsis and pneumonia 1.Sepsis improving Most likely secondary to Pneumonia Responded to IVF Continue Rocephin and Zithromax for Pneumonia blood Cx with no growth so far 2. Pneumonia with loculated pleural effusion and suspected RUL nectrotic mass Placed on respiratory isolation to rule out TB Pulmonary and ID consulted Placed PPD to right forearm. Will read in 48 and 72 hours Follow up quantiferon Respiratory therapist for sputum induction for AFB collection ( 2 samples obtained so far ) Continue Rocephin and Zithromax O2 via NC Pain management for pleuritic chest pain blood cx with no growth so far 3. Acute kidney injury improving , Cr 1.3 Most likely prerenal Continue IVF 4. Anemia Patient has history of chronic anemia with baseline Hgb 10.5 anemia work up shows iron deficiency Will give Venofer IV 100 mg IV and than strat on Ferrous sulfate PO 5. Uncontrolled DM Hgb A1c 8.7 Started Glipizide 10 mg PO daily, diabetic diet Accuchecks with insulin coverage Family will bring all her home meds 6. Hypothyroidism Controlled On Synthroid 7. Hypertension uncontrolled On Norvasc 5 mg QD Strt Toprol XL 25 mg po QD 8.Hyperkalemia resolved with IVF 9.DVT prophylaxis on Lovenox
[2017-02-10] MEDS: Metoprolol Succinate 25 mg XL Tab PO SCH (12:16)
--- NOTE | 2017-02-10 14:19 | CP.PCM.PN ---
Subjective - Subjective Subjective: Acute Resp Insuff Pneumonia ?Cavitary Necrotic Apical Mass Pleuritic Chest Pain S/ Feeing better. O/ VSS Head, Nego adeno Heart rrr ns1s2 Neg M Lungs some faint crackles mostly on right hemithorax Ext No c,c,e Neruo GNF a/p Cont abx at this point. Cont isolation (doubt TB given paucity of other constitutional Sx, but atypical presentation is always a consideration.) Rec HIV testing. f/u PPD and Gamma Interferon testing. Cont supp O2 for O2 sat > 90%. Cont serial AFB studies. ID input. If patient's sx resolve completely, would perform repeat CT scan in 3 weeks, and can be followed in Pulmonary Clinic. DVT Px. Will f/u. Objective - Vital Signs/Intake and Output Vital Signs (last 24 hours): Temp Pulse Resp BP Pulse Ox 98.4 F 94 H 18 176/94 H 98 02/10/17 07:41 02/10/17 12:16 02/10/17 07:41 02/10/17 12:16 02/10/17 07:41 - Medications Medications: Current Medications Acetaminophen (Tylenol 325mg Tab) 650 mg PO Q4 PRN PRN Reason: Pain, moderate (4-7) Last Admin: 02/09/17 23:11 Dose: 650 mg Amlodipine Besylate (Norvasc) 5 mg PO DAILY [facility] Last Admin: 02/10/17 08:47 Dose: 5 mg Enoxaparin Sodium (Lovenox) 40 mg SC DAILY [facility] PRN Reason: Protocol Last Admin: 02/10/17 08:47 Dose: 40 mg Ferrous Sulfate (Feosol) 325 mg PO BID [facility] Glipizide (Glucotrol Xl) 10 mg PO BRK [facility] Last Admin: 02/10/17 08:48 Dose: 10 mg Ceftriaxone Sodium 1 gm/ (Sodium Chloride) 100 mls @ 100 mls/hr IVPB DAILY [facility] Last Admin: 02/10/17 08:51 Dose: 100 mls/hr Azithromycin 500 mg/ Sodium (Chloride) 250 mls @ 250 mls/hr IVPB DAILY [facility] Last Admin: 02/10/17 08:50 Dose: 250 mls/hr Iron Sucrose 100 mg/ Sodium (Chloride) 105 mls @ 105 mls/hr IVPB DAILY [facility] Last Admin: 02/10/17 12:16 Dose: 105 mls/hr Insulin Human Lispro (Humalog) 0 units SC ACHS [facility] PRN Reason: Protocol Last Admin: 02/10/17 12:19 Dose: 4 units Levothyroxine Sodium (Synthroid) 37.5 mcg PO DAILY@0630 [facility] Metoprolol Succinate (Toprol Xl) 25 mg PO DAILY [facility] Last Admin: 02/10/17 12:16 Dose: 25 mg - Labs Labs: 02/10/17 06:15 02/10/17 06:15 PT 10.5 SECONDS (9.6-11.2) 02/08/17 12:30 INR 1.01 (0.92-1.08) 02/08/17 12:30 APTT 29.1 SECONDS (23.3-32.5) 02/08/17 12:30
[2017-02-11] MEDS: Levothyroxine 75 MCG TAB PO SCH (07:05)
[2017-02-11] MEDS: Insulin Lispro (humaLOG) 100 Units/ml Inj SC SCH ×4 (07:05→22:24)
[2017-02-11 07:13] LABS: CALCIUM 9.3 mg/dL (8.4-10.2); POTASSIUM 4.6 MMOL/L (3.6-5.0)
[2017-02-11] MEDS: GlipiZIDE 10 mg SR Tab PO SCH (09:10)
[2017-02-11] MEDS: Azithromycin 500 MG in Sodium Chloride 0.9% 250 ML IVPB SCH (11:04)
[2017-02-11] MEDS: Metoprolol Succinate 25 mg XL Tab PO SCH (11:11)
[2017-02-11] MEDS: Enoxaparin 40 mg Syringe SC SCH (11:14)
--- NOTE | 2017-02-11 13:51 | CP.PCM.PN ---
Subjective - Date & Time of Evaluation Date of Evaluation: 02/11/17 Time of Evaluation: 11:00 - Subjective Subjective: Pt seen and examined. Still with right pleuritic chest pain but lesser and more bearable. Denied SOB and coughing. Objective - Vital Signs/Intake and Output Vital Signs (last 24 hours): Temp Pulse Resp BP Pulse Ox 99.0 F 85 20 149/78 95 02/11/17 08:02 02/11/17 11:13 02/11/17 08:02 02/11/17 11:13 02/11/17 08:02 - Medications Medications: Current Medications Acetaminophen (Tylenol 325mg Tab) 650 mg PO Q4 PRN PRN Reason: Pain, moderate (4-7) Last Admin: 02/10/17 23:30 Dose: 650 mg Amlodipine Besylate (Norvasc) 5 mg PO DAILY [facility] Last Admin: 02/11/17 11:13 Dose: 5 mg Enoxaparin Sodium (Lovenox) 40 mg SC DAILY [facility] PRN Reason: Protocol Last Admin: 02/11/17 11:14 Dose: 40 mg Ferrous Sulfate (Feosol) 325 mg PO BID [facility] Last Admin: 02/11/17 11:15 Dose: 325 mg Glipizide (Glucotrol Xl) 10 mg PO BRK [facility] Last Admin: 02/11/17 09:10 Dose: 10 mg Ceftriaxone Sodium 1 gm/ (Sodium Chloride) 100 mls @ 100 mls/hr IVPB DAILY [facility] Last Admin: 02/11/17 11:03 Dose: 100 mls/hr Azithromycin 500 mg/ Sodium (Chloride) 250 mls @ 250 mls/hr IVPB DAILY [facility] Last Admin: 02/11/17 11:04 Dose: 250 mls/hr Iron Sucrose 100 mg/ Sodium (Chloride) 105 mls @ 105 mls/hr IVPB DAILY [facility] Last Admin: 02/10/17 12:16 Dose: 105 mls/hr Insulin Human Lispro (Humalog) 0 units SC ACHS [facility] PRN Reason: Protocol Last Admin: 02/11/17 12:38 Dose: 4 units Levothyroxine Sodium (Synthroid) 37.5 mcg PO DAILY@0630 [facility] Last Admin: 02/11/17 07:05 Dose: 37.5 mcg Metoprolol Succinate (Toprol Xl) 25 mg PO DAILY [facility] Last Admin: 02/11/17 11:11 Dose: 25 mg - Labs Labs: 02/10/17 06:15 02/11/17 06:05 PT 10.5 SECONDS (9.6-11.2) 02/08/17 12:30 INR 1.01 (0.92-1.08) 02/08/17 12:30 APTT 29.1 SECONDS (23.3-32.5) 02/08/17 12:30 - Constitutional Appears: No Acute Distress - Head Exam Head Exam: ATRAUMATIC - Eye Exam Eye Exam: absent: Scleral icterus - ENT Exam ENT Exam: Mucous Membranes Moist - Neck Exam Neck Exam: absent: Meningismus - Respiratory Exam Respiratory Exam: absent: Rhonchi, Wheezes, Respiratory Distress - Cardiovascular Exam Cardiovascular Exam: REGULAR RHYTHM, +S1, +S2 - GI/Abdominal Exam GI & Abdominal Exam: Soft. absent: Tenderness - Rectal Exam Rectal Exam: Deferred - Back Exam Back Exam: NORMAL INSPECTION - Neurological Exam Neurological Exam: Alert, Awake - Psychiatric Exam Psychiatric exam: Normal Affect - Skin Skin Exam: Dry, Intact Assessment and Plan (1) Sepsis Status: Acute (2) Pneumonia Status: Acute (3) HTN (hypertension) Status: Chronic (4) DM2 (diabetes mellitus, type 2) Status: Chronic (5) DVT prophylaxis Status: Acute - Assessment and Plan (Free Text) Assessment: 61 yo female with history of hypothyroidism, DM type II, HTN and anemia of chronic disease came in because of intermittent right sided pleuritic chest pain of 3 days duration accompanied with SOB and fever. 1.Sepsis improving sepsis likely secondary to Pneumonia Responded to IVF and antibiotics: Rocephin and Zithromax blood culture: no growth so far 2. Pneumonia with loculated pleural effusion and Cavitary Necrotic Apical Mass continue respiratory until TB is ruled out PPD on right forearm non-reactive after 48hrs Quantiferon TB test: negative 3 sputum collected for AFB stain and culture: pending Continue Rocephin and Zithromax O2 via NC at 2LPM Pain management for pleuritic chest pain 3. Acute kidney injury improved Creat: 1.2 likely prerenal Continue IVF 4. Anemia Patient has history of chronic anemia with baseline Hgb 10.5 Hgb: 9.4 anemia work up shows iron deficiency on Venofer IV 100 mg IV and Ferrous sulfate PO 5. Uncontrolled DM HgA1c: 8.7 Started Glipizide 10 mg PO daily, diabetic diet Accuchecks with insulin coverage 6. Hypothyroidism continue Synthroid 7. Hypertension BP stable continue Norvasc 5 mg PO OD and Toprol XL 25 mg PO OD 9.DVT prophylaxis on Lovenox
--- NOTE | 2017-02-11 21:29 | CP.PCM.PN ---
Subjective - Subjective Subjective: Tracheobronchitis with Pna, and pleuritic Chest Pain. s/ feeling uh better. O/ VSS afebrile Head Neg adeno Pos MAGED Heart Ns1s2 Neg M Lungs: Clear to A & P. Abdo S, NT Pos BS Ext No clubbing or cyanosis Pos LE edema Neuro gnf a/p Would cont abx for now. f/u fungal studies. ID input. This does not have the features of Pulmonary TB, and would d/c her once the 3 samples for AFB are negative. She can be followed with a repeat CT of Chest in Pulmonary clinic. so to assess resolution or progression of findings. . DVT px Will f/u. Objective - Vital Signs/Intake and Output Vital Signs (last 24 hours): Temp Pulse Resp BP Pulse Ox 98.2 F 88 20 153/89 H 96 02/11/17 17:00 02/11/17 17:00 02/11/17 17:00 02/11/17 17:00 02/11/17 17:00 - Medications Medications: Current Medications Acetaminophen (Tylenol 325mg Tab) 650 mg PO Q4 PRN PRN Reason: Pain, moderate (4-7) Last Admin: 02/10/17 23:30 Dose: 650 mg Amlodipine Besylate (Norvasc) 5 mg PO DAILY [facility] Last Admin: 02/11/17 11:13 Dose: 5 mg Enoxaparin Sodium (Lovenox) 40 mg SC DAILY [facility] PRN Reason: Protocol Last Admin: 02/11/17 11:14 Dose: 40 mg Ferrous Sulfate (Feosol) 325 mg PO BID [facility] Last Admin: 02/11/17 17:26 Dose: 325 mg Glipizide (Glucotrol Xl) 10 mg PO BRK [facility] Last Admin: 02/11/17 09:10 Dose: 10 mg Ceftriaxone Sodium 1 gm/ (Sodium Chloride) 100 mls @ 100 mls/hr IVPB DAILY [facility] Last Admin: 02/11/17 11:03 Dose: 100 mls/hr Azithromycin 500 mg/ Sodium (Chloride) 250 mls @ 250 mls/hr IVPB DAILY [facility] Last Admin: 02/11/17 11:04 Dose: 250 mls/hr Iron Sucrose 100 mg/ Sodium (Chloride) 105 mls @ 105 mls/hr IVPB DAILY [facility] Last Admin: 02/11/17 17:25 Dose: 105 mls/hr Insulin Human Lispro (Humalog) 0 units SC ACHS [facility] PRN Reason: Protocol Last Admin: 02/11/17 17:26 Dose: 3 units Levothyroxine Sodium (Synthroid) 37.5 mcg PO DAILY@0630 [facility] Last Admin: 02/11/17 07:05 Dose: 37.5 mcg Metoprolol Succinate (Toprol Xl) 25 mg PO DAILY [facility] Last Admin: 02/11/17 11:11 Dose: 25 mg - Labs Labs: 02/10/17 06:15 02/11/17 06:05 PT 10.5 SECONDS (9.6-11.2) 02/08/17 12:30 INR 1.01 (0.92-1.08) 02/08/17 12:30 APTT 29.1 SECONDS (23.3-32.5) 02/08/17 12:30
[2017-02-12] MEDS: Insulin Lispro (humaLOG) 100 Units/ml Inj SC SCH ×4 (06:45→21:46)
[2017-02-12] MEDS: Levothyroxine 75 MCG TAB PO SCH (06:46)
[2017-02-12] MEDS: Metoprolol Succinate 25 mg XL Tab PO SCH (09:13)
[2017-02-12] MEDS: Enoxaparin 40 mg Syringe SC SCH (09:13)
[2017-02-12] MEDS: GlipiZIDE 10 mg SR Tab PO SCH (09:14)
[2017-02-12] MEDS: Azithromycin 500 MG in Sodium Chloride 0.9% 250 ML IVPB SCH (09:15)
--- NOTE | 2017-02-12 13:02 | CP.PCM.PN ---
Subjective - Date & Time of Evaluation Date of Evaluation: 02/12/17 Time of Evaluation: 11:00 - Subjective Subjective: Pt seen and examined. Denied any complaint. Objective - Vital Signs/Intake and Output Vital Signs (last 24 hours): Temp Pulse Resp BP Pulse Ox 98.7 F 91 H 20 162/88 H 98 02/12/17 08:32 02/12/17 09:14 02/12/17 08:32 02/12/17 09:14 02/12/17 08:32 - Medications Medications: Current Medications Acetaminophen (Tylenol 325mg Tab) 650 mg PO Q4 PRN PRN Reason: Pain, moderate (4-7) Last Admin: 02/11/17 22:22 Dose: 650 mg Amlodipine Besylate (Norvasc) 5 mg PO DAILY [facility] Last Admin: 02/12/17 09:14 Dose: 5 mg Enoxaparin Sodium (Lovenox) 40 mg SC DAILY [facility] PRN Reason: Protocol Last Admin: 02/12/17 09:13 Dose: 40 mg Ferrous Sulfate (Feosol) 325 mg PO BID [facility] Last Admin: 02/12/17 09:14 Dose: 325 mg Glipizide (Glucotrol Xl) 10 mg PO BRK [facility] Last Admin: 02/12/17 09:14 Dose: 10 mg Ceftriaxone Sodium 1 gm/ (Sodium Chloride) 100 mls @ 100 mls/hr IVPB DAILY [facility] Last Admin: 02/12/17 09:15 Dose: 100 mls/hr Azithromycin 500 mg/ Sodium (Chloride) 250 mls @ 250 mls/hr IVPB DAILY [facility] Last Admin: 02/12/17 09:15 Dose: 250 mls/hr Iron Sucrose 100 mg/ Sodium (Chloride) 105 mls @ 105 mls/hr IVPB DAILY [facility] Last Admin: 02/12/17 11:30 Dose: 105 mls/hr Insulin Human Lispro (Humalog) 0 units SC ACHS [facility] PRN Reason: Protocol Last Admin: 02/12/17 06:45 Dose: Not Given Levothyroxine Sodium (Synthroid) 37.5 mcg PO DAILY@0630 [facility] Last Admin: 02/12/17 06:46 Dose: 37.5 mcg Metoprolol Succinate (Toprol Xl) 25 mg PO DAILY [facility] Last Admin: 02/12/17 09:13 Dose: 25 mg - Labs Labs: 02/10/17 06:15 02/11/17 06:05 PT 10.5 SECONDS (9.6-11.2) 02/08/17 12:30 INR 1.01 (0.92-1.08) 02/08/17 12:30 APTT 29.1 SECONDS (23.3-32.5) 02/08/17 12:30 - Constitutional Appears: No Acute Distress - Head Exam Head Exam: ATRAUMATIC - Eye Exam Eye Exam: absent: Scleral icterus - ENT Exam ENT Exam: Mucous Membranes Moist - Neck Exam Neck Exam: absent: Meningismus - Respiratory Exam Respiratory Exam: absent: Rhonchi, Wheezes, Respiratory Distress - Cardiovascular Exam Cardiovascular Exam: REGULAR RHYTHM, +S1, +S2 - GI/Abdominal Exam GI & Abdominal Exam: Soft. absent: Tenderness - Rectal Exam Rectal Exam: Deferred - Extremities Exam Extremities Exam: absent: Pedal Edema - Neurological Exam Neurological Exam: Alert, Oriented x3 - Psychiatric Exam Psychiatric exam: Normal Affect - Skin Skin Exam: Dry, Intact Assessment and Plan (1) Sepsis Status: Acute (2) Pneumonia Status: Acute (3) HTN (hypertension) Status: Chronic (4) DM2 (diabetes mellitus, type 2) Status: Chronic (5) DVT prophylaxis Status: Acute - Assessment and Plan (Free Text) Assessment: 61 yo female with history of hypothyroidism, DM type II, HTN and anemia of chronic disease came in because of intermittent right sided pleuritic chest pain of 3 days duration accompanied with SOB and fever. 1.Sepsis improving sepsis secondary to Pneumonia Responded to IVF and antibiotics: Rocephin and Zithromax blood culture: no growth so far 2. Pneumonia with loculated pleural effusion and Cavitary Necrotic Apical Mass continue respiratory isolation until TB is ruled out PPD on right forearm equivocal after 72hrs Quantiferon TB test: negative 3 sputum collected for AFB stain and culture: pending Continue Rocephin and Zithromax O2 via NC at 2LPM less pleuritic chest pain 3. Acute kidney injury improved with hydration Creat: 1.2 likely prerenal 4. Anemia Patient has history of chronic anemia with baseline Hgb 10.5 Hgb: 9.4 anemia work up shows iron deficiency on Venofer IV 100 mg IV and Ferrous sulfate PO 5. DM2 HgA1c: 8.7 BS better controlled continue Glipizide 10 mg PO daily, diabetic diet Accuchecks with insulin coverage 6. Hypothyroidism continue Synthroid TSH level 7. Hypertension BP slightly elevated Norvasc 10 mg PO OD Toprol XL 25 mg PO OD 9.DVT prophylaxis on Lovenox
[2017-02-12 13:38] LABS: BASO # 0.1 K/uL (0.0-0.2); BASO % 0.7 % (0.0-2.0); EOS # 0.5 K/uL (0.0-0.7); EOS % 3.1 % (0.0-4.0); HEMATOCRIT 30.7 % (34.0-47.0); LYMPH # 1.5 K/uL (1.0-4.3); LYMPH % 8.8 % (20.0-40.0); MEAN CORPUSCULAR HGB CONC 31.1 g/dL (33.0-37.0); MEAN PLATELET VOLUME 7.5 fl (7.2-11.7); MONO # 1.1 K/uL (0.0-0.8); MONO % 6.8 % (0.0-10.0); NEUT # 13.5 K/uL (1.8-7.0); NEUT % 80.6 % (50.0-75.0); PLATELET COUNT 490 K/uL (130-400); RED CELL DISTRIBUTION WIDTH 15.6 % (11.5-14.5); WHITE BLOOD COUNT 16.8 K/uL (4.8-10.8)
[2017-02-12 15:23] LABS: EOSINOPHIL 3 % (0-7); NEUTROPHIL 80 % (42-75); TOTAL CELLS COUNTED 100
[2017-02-12 15:24] LABS: LARGE PLATELETS PRESENT
[2017-02-13] MEDS: Levothyroxine 75 MCG TAB PO SCH (06:54)
[2017-02-13] MEDS: Insulin Lispro (humaLOG) 100 Units/ml Inj SC SCH ×5 (06:59→23:07)
[2017-02-13] MEDS: GlipiZIDE 10 mg SR Tab PO SCH (09:25)
[2017-02-13] MEDS: Metoprolol Succinate 25 mg XL Tab PO SCH (09:25)
[2017-02-13] MEDS: Azithromycin 500 MG in Sodium Chloride 0.9% 250 ML IVPB SCH (09:25)
[2017-02-13] MEDS: Enoxaparin 40 mg Syringe SC SCH (09:26)
--- NOTE | 2017-02-13 13:38 | CP.PCM.PN ---
Subjective - Date & Time of Evaluation Date of Evaluation: 02/13/17 Time of Evaluation: 13:10 - Subjective Subjective: Hospitalist Progress Note (Patient was seen and examined at 1:10 PM 02/13/17 659- 1 with [id number] present and this was ok with patient) 61 year old female who was admitted to [facility] on 02/08/17 for evaluation of SOB, Right Sided Pleuritic Chest Pain, and Fever. CT Chest 02/08/17 showed a loculated pleural fluid right medial lung base, right posterior upper lung zone/ right lung apex elliptical shaped area that could represent loculated fluid/ necrotic mass. AFB Sputum Cultures from 02/09/17 through 02/11/17 have been negative. Quanteferon Gold is negative. Fungal Studies are pending. Blood Culture 02/08/17 is negative to date. She will need follow up CT Chest. Currently upon FULL ROS: NO longer experiencing the Right Lower Chest and Right Thoracic back pain Moved her bowels/urination without any issues Slight headache NO diaphoresis NO SOB/Cough NO history of recent weight loss Exam: HEENT: NCA, EOMI, PERRLA, NO cervical/supraclavicular/submandibular lymphadenopathy, NO pharyngeal erythema/exudate, Oral Mucosa and Nasal Turbinates are moist Cardio: NS1 and NS2, NO M/R/G Resp: CTA B/L, NO R/R/W GI: BSx4, Soft, NT, ND, NO HSM, NO guarding/rebound tenderness Ext: Pulses are strong and equal, Capillary Refill is 2 seconds, NO edema Neuro: CN II through XII are grossly intact Assessment and Plan: 1). Pneumonia CT Chest 02/08/17 showed a loculated pleural fluid right medial lung base, right posterior upper lung zone/right lung apex elliptical shaped area that could represent loculated fluid/necrotic mass. AFB x 3 negative Blood Culture 02/08/17 is negative to date Quanterferon Gold is negative Fungal Studies pending Pulmonology Dr. Connell ID Dr. [place] Follow up CT Chest will be needed through Chest Clinic Azithromycin 500 mg IV 1x/day Ceftriaxone 1 gm IV Q24H 2). Hx DM 2 Glucotrol XL 10 mg PO 1x/day Breakfast Lispro ISS/Accuchecks Controlled 3). Hx HTN Norvasc 10 mg PO 1x/day Metoprolol XL 25 mg PO 1x/day 4). Hx Hypothyroidism Synthroid 37.5 mg PO 1x/day 5). Anemia Likely secondary to Iron Deficiency considering RBC indices F/U Iron Studies for 02/14/17 Feosol 325 mg PO 2x/day Iron Sucrose 100 mg IV 1x/day She will need Colonoscopy as outpatient HgB/Hct stable 6). Prophylactic Measures Tylenol 650 mg PO Q4H PRN moderate pain Lovenox 40 mg SC 1x/day Protonix 40 mg PO 1x/day Florastor 250 mg PO 2x/day Disposition: Low Grade Fever at 9:10 PM 02/12/17 F/U AM 02/14/17 labs and if blood culture finalized as negative will likely discharge in the morning 02/14/17 Hardeep Laguerre D.O. Objective - Vital Signs/Intake and Output Vital Signs (last 24 hours): Temp Pulse Resp BP Pulse Ox 98.4 F 96 H 20 146/75 99 02/13/17 07:56 02/13/17 09:24 02/13/17 07:56 02/13/17 09:24 02/13/17 07:56 - Medications Medications: Current Medications Acetaminophen (Tylenol 325mg Tab) 650 mg PO Q4 PRN PRN Reason: Pain, moderate (4-7) Last Admin: 02/11/17 22:22 Dose: 650 mg Amlodipine Besylate (Norvasc) 10 mg PO DAILY [facility] Last Admin: 02/13/17 09:24 Dose: 10 mg Enoxaparin Sodium (Lovenox) 40 mg SC DAILY [facility] PRN Reason: Protocol Last Admin: 02/13/17 09:26 Dose: 40 mg Ferrous Sulfate (Feosol) 325 mg PO BID [facility] Last Admin: 02/13/17 09:26 Dose: 325 mg Glipizide (Glucotrol Xl) 10 mg PO BRK [facility] Last Admin: 02/13/17 09:25 Dose: 10 mg Ceftriaxone Sodium 1 gm/ (Sodium Chloride) 100 mls @ 100 mls/hr IVPB DAILY [facility] Last Admin: 02/13/17 09:25 Dose: 100 mls/hr Azithromycin 500 mg/ Sodium (Chloride) 250 mls @ 250 mls/hr IVPB DAILY [facility] Last Admin: 02/13/17 09:25 Dose: 250 mls/hr Iron Sucrose 100 mg/ Sodium (Chloride) 105 mls @ 105 mls/hr IVPB DAILY [facility] Last Admin: 02/13/17 09:24 Dose: 105 mls/hr Insulin Human Lispro (Humalog) 0 units SC ACHS [facility] PRN Reason: Protocol Last Admin: 02/13/17 12:06 Dose: 4 units Levothyroxine Sodium (Synthroid) 37.5 mcg PO DAILY@0630 [facility] Last Admin: 02/13/17 06:54 Dose: 37.5 mcg Metoprolol Succinate (Toprol Xl) 25 mg PO DAILY [facility] Last Admin: 02/13/17 09:25 Dose: 25 mg - Labs Labs: 02/12/17 13:20 02/11/17 06:05 PT 10.5 SECONDS (9.6-11.2) 02/08/17 12:30 INR 1.01 (0.92-1.08) 02/08/17 12:30 APTT 29.1 SECONDS (23.3-32.5) 02/08/17 12:30
[2017-02-13] MEDS: Saccharomyces Boulardi 250 mg Cap PO SCH (17:48)
[2017-02-14] MEDS: Levothyroxine 75 MCG TAB PO SCH (06:20)
[2017-02-14] MEDS: Insulin Lispro (humaLOG) 100 Units/ml Inj SC SCH ×2 (06:33→12:38)
[2017-02-14 08:20] VITALS: BP 139/78; PULSE 79; RESP 20; TEMP 97.5; O2SAT 95
[2017-02-14 08:20] LABS: BASO # 0.1 K/uL (0.0-0.2); BASO % 0.5 % (0.0-2.0); EOS # 0.6 K/uL (0.0-0.7); HEMATOCRIT 30.4 % (34.0-47.0); LYMPH # 2.4 K/uL (1.0-4.3); MEAN CORPUSCULAR HEMOGLOBIN 23.1 pg (27.0-31.0); MEAN CORPUSCULAR HGB CONC 31.2 g/dL (33.0-37.0); MEAN PLATELET VOLUME 7.6 fl (7.2-11.7); MONO # 1.2 K/uL (0.0-0.8); MONO % 6.5 % (0.0-10.0); NEUT # 14.3 K/uL (1.8-7.0); NRBC % 0.1 % (0.0-0.0); RED CELL DISTRIBUTION WIDTH 15.9 % (11.5-14.5); WHITE BLOOD COUNT 18.5 K/uL (4.8-10.8)
[2017-02-14 08:22] LABS: ALB/GLOB RATIO 0.9 (1.0-2.1); BILIRUBIN,TOTAL 0.3 mg/dl (0.2-1.3); CALCIUM 9.5 mg/dL (8.4-10.2); POTASSIUM 4.3 MMOL/L (3.6-5.0); TOTAL PROTEIN 7.5 G/DL (6.3-8.2)
[2017-02-14] MEDS: Enoxaparin 40 mg Syringe SC SCH ×2 (09:00→09:08)
[2017-02-14] MEDS ORDERED: Pantoprazole 40 mg EC Tab PO SCH (09:00)
[2017-02-14] MEDS: Azithromycin 500 MG in Sodium Chloride 0.9% 250 ML IVPB SCH ×2 (09:06→11:48)
[2017-02-14] MEDS: Metoprolol Succinate 25 mg XL Tab PO SCH (09:07)
[2017-02-14] MEDS: Saccharomyces Boulardi 250 mg Cap PO SCH (09:07)
[2017-02-14] MEDS: GlipiZIDE 10 mg SR Tab PO SCH (09:07)
--- NOTE | 2017-02-14 14:42 | CP.PCM.DIS ---
Provider - Provider Date of Admission: 02/08/17 16:08 Attending physician: Burton Barrera MD Primary care physician: [place] in [place] but is followed regularly [id number] in [place] Consults: ID Dr. Malik Samayoa Cna Instructor Dr. Connell Time Spent in preparation of Discharge (in minutes): 40 Hospital Course - Lab Results Lab Results: Micro Results 02/09/17 09:44 Other: Please Indicate Mycobacterial Culture - Preliminary 02/11/17 10:14 Other: Please Indicate Mycobacterial Culture - Preliminary 02/10/17 10:32 Other: Please Indicate Mycobacterial Culture - Preliminary Most Recent Lab Values WBC 18.5 K/uL (4.8-10.8) H 02/14/17 06:00 RBC 4.10 Mil/uL (3.80-5.20) 02/14/17 06:00 Hgb 9.5 g/dL (12.0-16.0) L 02/14/17 06:00 Hct 30.4 % (34.0-47.0) L 02/14/17 06:00 MCV 74.0 fl (81.0-99.0) L 02/14/17 06:00 MCH 23.1 pg (27.0-31.0) L 02/14/17 06:00 MCHC 31.2 g/dL (33.0-37.0) L 02/14/17 06:00 RDW 15.9 % (11.5-14.5) H 02/14/17 06:00 Plt Count 498 K/uL (130-400) H 02/14/17 06:00 MPV 7.6 fl (7.2-11.7) 02/14/17 06:00 Neut % (Auto) 77.0 % (50.0-75.0) H 02/14/17 06:00 Lymph % (Auto) 13.0 % (20.0-40.0) L 02/14/17 06:00 [place] % (Auto) 6.5 % (0.0-10.0) 02/14/17 06:00 Eos % (Auto) 3.0 % (0.0-4.0) 02/14/17 06:00 Baso % (Auto) 0.5 % (0.0-2.0) 02/14/17 06:00 Neut # 14.3 K/uL (1.8-7.0) H 02/14/17 06:00 Lymph # 2.4 K/uL (1.0-4.3) 02/14/17 06:00 [place] # 1.2 K/uL (0.0-0.8) H 02/14/17 06:00 Eos # 0.6 K/uL (0.0-0.7) 02/14/17 06:00 Baso # 0.1 K/uL (0.0-0.2) 02/14/17 06:00 Neutrophils % (Manual) 80 % (42-75) H 02/12/17 13:20 Lymphocytes % (Manual) 9 % (20-50) L 02/12/17 13:20 Monocytes % (Manual) 8 % (0-10) 02/12/17 13:20 Eosinophils % (Manual) 3 % (0-7) 02/12/17 13:20 Toxic Granulation Present 02/08/17 12:30 Platelet Estimate Slightly increased (NORMAL) H 02/12/17 13:20 Plt Clumps, EDTA Present 02/08/17 12:30 Large Platelets Present 02/12/17 13:20 Hypochromasia (manual) Slight 02/08/17 12:30 Anisocytosis (manual) Slight 02/12/17 13:20 Microcytosis (manual) Slight 02/08/17 12:30 Ovalocytes Slight 02/12/17 13:20 Retic Count 1.3 % (0.5-1.5) 02/09/17 11:00 PT 10.5 SECONDS (9.6-11.2) 02/08/17 12:30 INR 1.01 (0.92-1.08) 02/08/17 12:30 APTT 29.1 SECONDS (23.3-32.5) 02/08/17 12:30 pO2 48 mm/Hg (30-55) 02/08/17 12:50 VBG pH 7.39 (7.32-7.43) 02/08/17 12:50 VBG pCO2 35 mmHg (40-60) L 02/08/17 12:50 VBG HCO3 22.1 mmol/L 02/08/17 12:50 VBG Total CO2 22.3 mmol/L (22-28) 02/08/17 12:50 VBG O2 Sat (Calc) 85.4 % (40-65) H 02/08/17 12:50 VBG Base Excess -3.1 mmol/L (0.0-2.0) L 02/08/17 12:50 VBG Potassium 5.0 mmol/L (3.6-5.2) 02/08/17 12:50 Sodium 131.0 mmol/L (132-148) L 02/08/17 12:50 Chloride 104.0 mmol/L (98-107) 02/08/17 12:50 Glucose 349 mg/dL (65-105) H 02/08/17 12:50 Lactate 1.0 mmol/L (0.7-2.1) 02/08/17 12:50 FiO2 21.0 % 02/08/17 12:50 Sodium 140 mmol/l (132-148) 02/14/17 06:00 Potassium 4.3 MMOL/L (3.6-5.0) 02/14/17 06:00 Chloride 107 mmol/L (98-107) 02/14/17 06:00 Carbon Dioxide 23 mmol/L (22-30) 02/14/17 06:00 Anion Gap 14 (10-20) 02/14/17 06:00 BUN 17 mg/dl (7-17) 02/14/17 06:00 Creatinine 1.2 mg/dL (0.7-1.2) 02/14/17 06:00 Est GFR ( Amer) 55 02/14/17 06:00 Est GFR (Non-Af Amer) 46 02/14/17 06:00 POC Glucose (mg/dL) 158 mg/dL (65-110) H 02/14/17 05:30 Random Glucose 126 mg/dL (65-105) H 02/14/17 06:00 Hemoglobin A1c 8.7 % (4.2-6.5) H 02/09/17 11:00 Calcium 9.5 mg/dL (8.4-10.2) 02/14/17 06:00 Iron 19 ug/dL (37-170) L 02/09/17 12:00 TIBC 240 ug/dL (250-450) L 02/09/17 12:00 % Saturation 8 % (20-55) L 02/09/17 12:00 Transferrin 170.60 mg/dL (206-381) L 02/09/17 11:00 Ferritin 141.0 ng/mL 02/09/17 11:00 Total Bilirubin 0.3 mg/dl (0.2-1.3) 02/14/17 06:00 AST 33 U/L (14-36) 02/14/17 06:00 ALT 53 U/L (9-52) H D 02/14/17 06:00 Alkaline Phosphatase 177 U/L (38-126) H D 02/14/17 06:00 Troponin I < 0.0120 ng/mL (0.00-0.120) 02/08/17 12:50 Total Protein 7.5 G/DL (6.3-8.2) 02/14/17 06:00 Albumin 3.5 g/dL (3.5-5.0) 02/14/17 06:00 Globulin 4.0 gm/dL (2.2-3.9) H 02/14/17 06:00 Albumin/Globulin Ratio 0.9 (1.0-2.1) L 02/14/17 06:00 Vitamin B12 > 1000 pg/mL (239-931) H 02/09/17 11:00 Folate > 20.0 ng/mL 02/09/17 11:00 TSH 3rd Generation 3.84 mIU/ML (0.46-4.68) 02/12/17 14:45 Venous Blood Potassium 5.0 mmol/L (3.6-5.2) 02/08/17 12:50 TB Test (QFT) Nil 0.04 IU/mL 02/09/17 09:00 TB Test Mitogen - Nil 0.54 IU/mL 02/09/17 09:00 TB Test TB - Nil 0.13 IU/mL 02/09/17 09:00 TB Test (QFT) Negative (Negative) 02/09/17 09:00 - Hospital Course Hospital Course: 61 year old female who was admitted to [facility] on 02/08/17 for evaluation of SOB, Right Sided Pleuritic Chest Pain, and Fever. CT Chest 02/08/17 showed a loculated pleural fluid right medial lung base, right posterior upper lung zone/ right lung apex elliptical shaped area that could represent loculated fluid/ necrotic mass. AFB Sputum Cultures from 02/09/17 through 02/11/17 have been negative. Quanteferon Gold is negative. Fungal Studies are pending. Blood Culture 02/08/17 is has been finalized as negative at 5 days. She will need follow up CT Chest in 3 weeks time through [facility] and if the Cna Instructor there feels that she still needs to have a Bronchoscopy after repeat CT Chest, then Cna Instructor Dr. Connell will perform. Currently upon FULL ROS: NO chest pain, NO palpitations, NO SOB/Wheezing, (+) Cough occasional dry/ nonproductive, NO dysphagia/odynophagia, NO abdominal pain, NO n/v/d/c, NO burning/pain with urinations, NO lightheadedness/dizziness, NO headache, NO new changes in vision/eye pain, NO new changes in hearing/ear pain, NO paresthesias , NO edema Exam: HEENT: NCA, EOMI, PERRLA, NO cervical/supraclavicular/submandibular lymphadenopathy, NO pharyngeal erythema/exudate, Oral Mucosa and Nasal Turbinates are moist Cardio: NS1 and NS2, NO M/R/G Resp: CTA B/L, NO R/R/W GI: BSx4, Soft, NT, ND, NO HSM, NO guarding/rebound tenderness Ext: Pulses are strong and equal, Capillary Refill is 2 seconds, NO edema Neuro: CN II through XII are grossly intact Assessment and Plan: 1). Pneumonia CT Chest 02/08/17 showed a loculated pleural fluid right medial lung base, right posterior upper lung zone/right lung apex elliptical shaped area that could represent loculated fluid/necrotic mass. AFB x 3 negative Blood Culture 02/08/17 is finalized at 5 days as negative Quanterferon Gold is negative Fungal Studies pending Pulmonology Dr. Connell whose help is greatly appreciated ID Dr. Reno whose help is greatly appreciated She will need follow up CT Chest in 3 weeks time through [facility] and if the Cna Instructor there feels that she still needs to have a Bronchoscopy after repeat CT Chest, then Cna Instructor Dr. Connell will perform. Treated with Azithromycin 500 mg IV 1x/day and Ceftriaxone 1 gm IV Q24H for 7 days while in-patient and she was discharged on Augmentin 875/125 mg PO 2x/day ( breakfast and dinner) for 7 days 2). Hx DM 2 Controlled Continue home medication from [place] Glimepiride 2 mg PO 1x/day 3). Hx HTN Continue home medication from [place] Losartan/HCTZ 4). Hx Hypothyroidism Continue home medication from [place] Levothyroxine 37.5 mg PO 1x/day 5). Anemia Secondary to Iron Deficiency considering RBC indices Continue Feosol 325 mg PO 2x/day She never has had a Colonoscopy and will need Colonoscopy as outpatient through her physician in [place], where she will return in 2 months HgB/Hct stable 6). Prophylactic Measures She will need to continue over the counter Probiotic at lunch time for the next 30 days The patient is fever free for greater than 24 hours, her cultures are negative, and vitals are stable. The following instructions were explained to patient and her daughter and copy of this discharge summary was provided to daughter: 1). Please contact the [facility] at [phone] located at [address] [place] [address] [place] [address] for an appointment to take place in 3 weeks time. Through the [facility] arrange for a repeat of CT Chest to make sure there is clearance of the findings on CT Chest that was done during your time in the hospital. If the lung doctor at the [facility] feels like you need to have bronchoscopy (a camera that is placed through your mouth and into the piping of the lungs), then have him/her arrange to speak with Cna Instructor Dr. Connell at his office [phone]. 2). Please continue the following medications at home which you stated you had enough of: Losartan/HCTZ Levothyroxine Glimepiride Norvasc 3). Please picking machine operator helper the following medications that do not require a prescription from you local pharmacy and ask the pharmacist to help you find them: FeSO4 325 mg 1 tablet by mouth 2 times a day Probiotic 1 tablet by mouth 1 time a day at lunch time for the next 30 days 4). Please have the following antibiotic prescription filled at your pharmacy and start on 02/15/17: Augmentin 875/125 mg 1 tablet by mouth 2 times a day (breakfast and dinner) for 7 days 5). You have anemia that is because your Iron is low. It is extremely important for you to have a Colonoscopy performed (a camera that is placed through your rectum to take a look at your colon) once you return to [facility] in 2 to 3 months. Your doctor in [facility] should help you to arrange for this. 6). Please bring a copy of this discharge summary with you to your appointment at the [facility] as well as to your doctor in [facility] for their review. 7). Please take care. Hardeep Laguerre D.O. Discharge Exam - Head Exam Head Exam: ATRAUMATIC Discharge Plan - Follow Up Plan Condition: FAIR Disposition: HOME/ ROUTINE Instructions: Hypertension (DC), Hypertension (GEN), Airborne Precautions (GEN) Additional Instructions: Follow Up with: [place] [address]
--- NOTE | 2017-02-15 15:21 | PQF SEPSIS ---
Dr. Laguerre sepsis is documented in medical record but not in discharge summary. Was diagnosis of sepsis ruled in or out? This form is a permanent part of the medical record Clarification of your documentation is requested to better reflect the severity of illness and intensity of treatment of your patient. Indicators present [] Temp < 96.8 or > 100.4 [] WBC count > 12,000/mm3 or <000/mm3 or 10% immature neutrophils [] Heart Rate > 90 [] Respiratory Rate > 20 [] Fever or hypothermia [] Chills [] Positive blood cultures [] Hypotension [] Metabolic acidosis (Elevated lactate level, anion gap or reduced blood pH) [] Acute confusion /Altered Mental Status [] Shock [] Other: [] Location in the medical record that reflects the above clinical findings: [] Treatment Provided: [] PHYSICIAN'S RESPONSE Based on your medical judgment of the clinical indicators outlined above, are you treating this patient for a known or suspected: [] Sepsis / Septicemia Please specify organism if known [] [] SIRS (Systemic Inflammatory Response Syndrome) [] Severe Sepsis (Sepsis with Associated Organ Dysfunction) [] Fever of Unknown Origin [] Other, please indicate: [] [] If Unable to Determine, please check the box, sign and date. Present On Admission (POA) Indicator: [] Present at the time of admission [] Not present at the time of admission [] Clinically Undetermined In responding to this query, please exercise your independent professional judgment. The fact that a question is asked does not imply that any particular answer is desired or expected. Thank you for your clarification on this documentation. If you have any questions please call:[ ] * Thank you, [ ]Kaitlyn Cantu splitting machine operator DAVID
== END 2017-02-14 17:00 | disposition home or self-care (01) | DRG 194 ==
LOC: H.ER 11:50 → H.ERHOLD 16:08 → H.MEDSURG1 18:15
DX: J18.9 Pneumonia, unspecified organism (principal); N17.9 Acute kidney failure, unspecified; E11.65 Type 2 diabetes mellitus with hyperglycemia; E87.5 Hyperkalemia; E03.9 Hypothyroidism, unspecified; D50.9 Iron deficiency anemia, unspecified; D63.8 Anemia in other chronic diseases classified elsewhere; I10 Essential (primary) hypertension; J40 Bronchitis, not specified as acute or chronic